=== PATIENT | female | born 1960 | race Hispanic/Latino ===

== ENCOUNTER 2017-04-17 09:18 | Outpatient (CLI) | payer MEDICARE ==
--- NOTE | 2017-04-18 14:43 | Mammography Report ---
BILATERAL DIGITAL SCREENING MAMMOGRAM with CAD: 04/17/17 09:18:00 CLINICAL: Routine screening. COMPARISON:09/10/17 and 06/20/10 FINDINGS: The breasts are mostly fatty. Left asymmetries far posterior and lateral in the left breast on the CC view require additional imaging.No architectural distortion or suspicious calcifications.The right breast is negative. IMPRESSION: Left asymmetries requiring further workup. BI-RADS CATEGORY: 0 -- Additional Imaging Evaluation Required RECOMMENDATION: Recall for left exaggerated CC and spot compression CC views and left breast ultrasound if needed. ACR BI-RADS MAMMOGRAPHIC CODES: 0 = Needs additional imaging evaluation; 1 = Negative; 2 = Benign; 3 = Probably benign; 4 = Suspicious; 5 = Malignant; 6 = Known biopsy-proven malignancy COMMENT: 1. Dense breast tissue, i.e., adenosis, fibrocystic changes, etc., may obscure an underlying neoplasm. 2. Approximately 10% of cancers are not detected with mammography. 3. A negative mammography report should not delay biopsy if a clinically suspicious mass is present. COMMENT: Patient follow-up letters are generated via our [employer] application.
== END 2017-04-17 09:19 | disposition home or self-care (01) ==
LOC: MAMMO 09:18
PROVIDERS: ATTEND Obstetrics & Gynecology
DX: Z12.31 Encounter for screening mammogram for malignant neoplasm of breast (principal)
CPT/HCPCS: 77067

== ENCOUNTER 2017-05-31 08:35 | Outpatient (CLI) | payer MEDICARE ==
--- NOTE | 2017-05-31 09:44 | Ultrasound Report ---
Left mammogram and breast ultrasound: Additional imaging of the left breast is performed for an asymmetry identified on recent screening exam. Spot compression imaging in the CC view again demonstrates this horseshoe shaped density with a lucent at the junction of the pectoralis muscle. This is only identified in the CC projection. Ultrasound of the breast near the axilla also demonstrates a heterogeneously hypoechoic circumscribed area measuring 7.3 mm which is similar in size to the mammographic density. There are no overtly suspicious characteristics. Impression: Probably benign left asymmetry. Recommendation: Repeat left mammogram and ultrasound in 6 months to confirm stability. BI-RADS CATEGORY: 3 = Probably benign ACR BI-RADS MAMMOGRAPHIC CODES: 0 = Needs additional imaging evaluation; 1 = Negative; 2 = Benign; 3 = Probably benign; 4 = Suspicious; 5 = Malignant; 6 = Known biopsy-proven malignancy COMMENT: 1. Dense breast tissue, i.e., adenosis, fibrocystic changes, etc., may obscure an underlying neoplasm. 2. Approximately 10% of cancers are not detected with mammography. 3. A negative mammography report should not delay biopsy if a clinically suspicious mass is present.
== END 2017-05-31 08:36 | disposition home or self-care (01) ==
LOC: MAMMO 08:35
PROVIDERS: ATTEND Obstetrics & Gynecology
DX: R92.8 Other abnormal and inconclusive findings on diagnostic imaging of breast (principal)

== ENCOUNTER 2019-05-11 22:25 | Observation (INO) | payer MEDICARE ==
--- NOTE | 2019-05-11 22:42 | Emergency Department Report ---
ED Shortness of Breath HPI - General Chief Complaint: Dyspnea/Respdistress Stated Complaint: LIZZY Time Seen by Provider: 05/11/19 22:31 Source: EMS Mode of arrival: Stretcher Limitations: Other - History of Present Illness Initial Comments: Mrs. Soria is a 58-year-old female with history of pulmonary hypertension, coronary artery disease status post PCI, end-stage renal disease on hemodialysis Sunday who presents with severe shortness of breath. For the past week she has had cough and sinus congestion. Her PCP prescribed antibioti cs. Last hemodialysis session occurred on Sunday. She missed dialysis on Sunday due to nausea, upset stomach. Shortness of breath began today. Shortness of breath worsened over the last 45 minutes. She is only able to ambulate 2-3 steps before she develops shortness of breath. She normally requires 1 to 3 L nasal cannula supplemental oxygen. Today her daughter increase her oxygen supplementation to 8 L/min. Ms. Soria still produces urine. She has received care previously at [facility]. Oil Field Tester is Dr. Nj. She receives hemodialysis at [facility]. PCP Dr. Darryl Espinal in [place] History obtained from paramedics and daughter at the bedside. unable to obtain history from patient due to severe work of breathing, en route, EMS treated patient with CPAP, albuterol nebulizer therapy, IV Solu-Medrol and IV magnesium. No history of COPD. No history of tobacco abuse. Highest oxygen saturation achieved by EMS 88 to 89% while on CPAP and receiving nebulizer therapy. MD Complaint: shortness of breath -: Gradual, days(s) (1) Severity: severe Consistency: constant Improves With: nothing Worsens With: exertion Known History Of: other (End-stage renal disease on hemodialysis) Context: recent URI - Related Data Home Medications Medication Instructions Recorded Confirmed Last Taken Gabapentin 600 mg PO TID 05/11/19 05/12/19 Unknown Isosorbide Dinitrate [Isordil 20 mg PO TID 05/11/19 05/11/19 Unknown Titradose] Lispro Insulin [HumaLOG] 05/11/19 Unknown Ticagrelor [Brilinta] 90 mg PO BID 05/11/19 05/11/19 Unknown carvediloL [Coreg] 6.25 mg PO BID 05/11/19 05/11/19 Unknown clonazePAM 0.5 mg PO QDAY PRN 05/11/19 05/11/19 Unknown tiZANidine [Zanaflex 4mg TAB] 4 mg PO DAILY 05/11/19 05/11/19 Unknown Benzonatate 100 mg PO PRN PRN 05/12/19 05/12/19 Unknown Cinacalcet [Sensipar] 60 mg PO QDAY 05/12/19 05/12/19 Unknown Velphoro (Nf) 500 mg PO QACHS 05/12/19 05/12/19 Unknown cloNIDine [Catapres] 0.1 mg PO QDAY PRN 05/12/19 05/12/19 Unknown Allergies Allergy/AdvReac Type Severity Reaction Status Date / Time clindamycin Allergy Rash Verified 05/11/19 22:37 codeine Allergy Itching Unverified 09/10/14 08:21 Penicillins Allergy Rash Unverified 09/10/14 08:21 ED Review of Systems ROS: Stated complaint: LIZZY Other details as noted in HPI Comment: Unobtainable due to pts medical conditions (Severe work of breathing) ED Past Medical Hx - Past Medical History Previous Medical History?: Yes Hx Diabetes: Yes Additional medical history: dialysis m.w.f, cardiac stent pulmonary hypertension - Surgical History Past Surgical History?: Yes Additional Surgical History: fistula left arm , stent placed 2018 - Social History Smoking Status: Never Smoker Substance Use Type: None - Medications Home Medications: Home Medications Medication Instructions Recorded Confirmed Last Taken Type Gabapentin 600 mg PO TID 05/11/19 05/12/19 Unknown History Isosorbide Dinitrate [Isordil 20 mg PO TID 05/11/19 05/11/19 Unknown History Titradose] Lispro Insulin [HumaLOG] 05/11/19 Unknown History Ticagrelor [Brilinta] 90 mg PO BID 05/11/19 05/11/19 Unknown History carvediloL [Coreg] 6.25 mg PO BID 05/11/19 05/11/19 Unknown History clonazePAM 0.5 mg PO QDAY PRN 05/11/19 05/11/19 Unknown History tiZANidine [Zanaflex 4mg TAB] 4 mg PO DAILY 05/11/19 05/11/19 Unknown History Benzonatate 100 mg PO PRN PRN 05/12/19 05/12/19 Unknown History Cinacalcet [Sensipar] 60 mg PO QDAY 05/12/19 05/12/19 Unknown History Velphoro (Nf) 500 mg PO QACHS 05/12/19 05/12/19 Unknown History cloNIDine [Catapres] 0.1 mg PO QDAY PRN 05/12/19 05/12/19 Unknown History ED Physical Exam - General Limitations: Other General appearance: alert, in distress, other (Severe work of breathing, accessory muscle use, only able to speak 1-2 word sentences,) - Head Head exam: Present: atraumatic, normocephalic - Eye Eye exam: Present: normal appearance - ENT ENT exam: Present: mucous membranes moist - Neck Neck exam: Present: normal inspection, full ROM - Respiratory Respiratory exam: Present: respiratory distress, rales, rhonchi, accessory muscle use, decreased breath sounds - Cardiovascular Cardiovascular Exam: Present: regular rate, normal rhythm, normal heart sounds, systolic murmur, diastolic murmur. Absent: rubs, gallop - GI/Abdominal GI/Abdominal exam: Present: soft. Absent: distended, tenderness, guarding, rebound - Extremities Exam Extremities exam: Present: normal inspection - Neurological Exam Neurological exam: Present: alert, oriented X3 - Psychiatric Psychiatric exam: Present: anxious - Skin Skin exam: Present: warm, dry, intact, normal color, other (Left upper extremity AV fistula positive thrill positive bruit). Absent: rash ED Course Vital Signs 05/11/19 05/11/19 05/11/19 22:28 22:29 22:30 Pulse Rate 97 H 96 H 98 H Respiratory 15 30 H 18 Rate Blood Pressure Blood Pressure 212/83 [Right] O2 Sat by Pulse 98 95 Oximetry 05/11/19 05/11/19 05/11/19 22:42 22:43 22:46 Pulse Rate 95 H 85 Respiratory 20 23 21 Rate Blood Pressure 212/83 208/91 Blood Pressure [Right] O2 Sat by Pulse 100 98 100 Oximetry 05/11/19 05/11/19 05/11/19 22:55 23:00 23:16 Pulse Rate 67 62 61 Respiratory 20 20 Rate Blood Pressure 207/80 207/80 208/91 Blood Pressure [Right] O2 Sat by Pulse 97 99 Oximetry 05/11/19 05/11/1905/12/20 23:30 23:46 00:00 Pulse Rate 62 60 63 Respiratory 20 19 20 Rate Blood Pressure 170/59 170/59 191/78 Blood Pressure [Right] O2 Sat by Pulse 100 100 100 Oximetry 05/12/19 00:29 Pulse Rate 66 Respiratory Rate Blood Pressure 211/81 Blood Pressure [Right] O2 Sat by Pulse Oximetry ED Medical Decision Making - Lab Data Result diagrams: 05/11/19 23:11 05/11/19 23:11 - EKG Data 05/11/19 22:42 EKG obtained 2236 Normal sinus rhythm rate 95 bpm normal axis prolonged QTC poor R wave progression in anterior leads widened QRS complex no ST elevation - Radiology Data Radiology results: report reviewed AP portable chest x-ray showed significant pulmonary edema with moderate pleural effusions cephalization, alveolar edema - Medical Decision Making Mrs. Soria has history of pulmonary hypertension, coronary disease, diabetes mellitus, end-stage renal disease on hemodialysis. She presents in severe respiratory distress. She has required noninvasive positive pressure ventilation. 1. Acute respiratory failure hypoxia: Severe pulmonary edema seen on chest radiograph, blood pressure controlled with IV labetalol and preload reduction and venodilatation achieved with sublingual nitroglycerin, I have consulted marketing production coordinator Dr. Lacy who agreed to arrange emergent hemodialysis. No indication of concomitant causes of hypoxia respiratory failure such as pulmonary embolism or OR. Patient feels much better with noninvasive positive pressure ventilation. Dr. Starr hospitalist agreed to admit the patient to the CCU. Critical Care Time: Yes Critical care time in (mins) excluding proc time.: 40 Critical care attestation.: If time is entered above; I have spent that time in minutes in the direct care of this critically ill patient, excluding procedure time. 40 minutes of critical care time excluding procedures were used in the care of the patient. I reviewed electronic record. I discussed treatment plan with the nursing team members at the bedside. I came immediately to the bedside. I kept the family member informed. Patient required multiple interventions and reassessments. I obtained history from escort car driver at the bedside. I was concerned for patient's high oxygen requirement. Also concerning for impending airway compromise. ED Disposition Clinical Impression: Acute respiratory failure with hypoxia, Hypertensive emergency, End stage renal disease on dialysis, Pulmonary hypertension Disposition: OP ADMIT IP TO THIS HOSP Is pt being admited?: Yes Does the pt Need Aspirin: No Condition: Fair
[2019-05-11] MEDS ORDERED: NITROGLYCERIN 2% OINT 1 GM TP STA (22:54)
--- NOTE | 2019-05-11 23:04 | XRay Report ---
CHEST 1 VIEW 20-39 INDICATION / CLINICAL INFORMATION: Dyspnea esrd hypoxia. COMPARISON: None available. FINDINGS: SUPPORT DEVICES: None HEART / MEDIASTINUM: Moderate cardiomegaly LUNGS / PLEURA: Poor degree of inspiration is seen. Congestive changes and pulmonary edema are noted. Bibasilar areas of atelectasis and/or infiltrate are seen, particularly which may relate to the dimas estive process and edema. Bilateral [id number] pleural effusions are seen, left greater than r ight. No pneumothorax. ADDITIONAL FINDINGS: No significant additional findings. IMPRESSION: Congestive failure Signer Name: Oracio Dow MD Signed: 05/11/2019 10:59 PM Workstation Name: [id number]
[2019-05-11 23:38] LABS: Basophils # (Auto) 0.1 K/mm3 (0.0-0.1); Basophils % (Auto) 0.6 % (0.0-1.8); Eosinophils # (Auto) 0.1 K/mm3 (0.0-0.4); Eosinophils % (Auto) 1.4 % (0.0-4.3); Hematocrit 32.7 % (30.3-42.9); Hemoglobin 10.5 gm/dl (10.1-14.3); Lymphocytes # (Auto) 0.7 K/mm3 (1.2-5.4); Lymphocytes % (Auto) 7.2 % (13.4-35.0); Mean Corpuscular HGB Conc 32 % (30-34); Mean Corpuscular Volume 99 fl (79-97); Monocytes # (Auto) 0.3 K/mm3 (0.0-0.8); Monocytes % (Auto) 2.8 % (0.0-7.3); Platelet Count 144 K/mm3 (140-440); Red Blood Count 3.29 M/mm3 (3.65-5.03); Red Cell Distribution Width 15.1 % (13.2-15.2)
[2019-05-12 00:25] LABS: Calcium 10.9 mg/dL (8.4-10.2)
[2019-05-12 00:30] LABS: Alanine Aminotransferase 11 units/L (7-56); Albumin 3.9 g/dL (3.9-5)
[2019-05-12 00:34] LABS: Bilirubin,Direct < 0.2 mg/dL (0-0.2)
[2019-05-12 00:55] LABS: ABG Base Excess -1.6 mmol/L (-2.0-3.0); ABG HCO3 24.9 mmol/L (20.0-26.0); ABG Methemoglobin 0.5 % (0.0-1.5); ABG Oxygen Saturation 94.8 % (95.0-99.0); ABG PCO2 50.6 mm Hg; ABG PH 7.31 pH Units (7.350-7.450); ABG PO2 77.1 mm Hg (80.0-90.0)
[2019-05-12] MEDS ORDERED: cloNIDine 0.2 MG TAB PO ONE (01:13)
[2019-05-12] MEDS ORDERED: MORPHINE 2 MG/1 ML INJ IV PRN (02:02)
[2019-05-12] MEDS ORDERED: MAGNESIUM HYDROXIDE (MOM) ORAL LIQD UDC PO PRN (02:02)
[2019-05-12] MEDS ORDERED: DEXTROSE 50% IN WATER (25GM) 50 ML SYRINGE IV PRN (02:02)
[2019-05-12] MEDS ORDERED: ONDANSETRON 4 MG/2 ML INJ IV PRN (02:02)
[2019-05-12] MEDS ORDERED: hydrALAZINE 20 MG/1 ML INJ IV ONE (02:05)
--- NOTE | 2019-05-12 02:14 | History and Physical Report ---
History of Present Illness Date of examination: 05/12/19 Date of admission: 05/12/2019 Chief complaint: Shortness of breath History of present illness: Patient is a 57-year-old female with significant past medical history of coronary artery disease status post stent placement in the past, pulmonary hypertension, end-stage renal disease on dialysis Wednesdays and Fridays presenting to the emergency room today complaining of shortness of breath. Patient has been having cough and sinus congestion for about a week, she was also having some nausea and vomiting sometime on Sunday and therefore could not go for dialysis. She has been having worsening shortness of breath for about an hour prior to reporting to the emergency room. Patient is on oxygen at home and uses up to 1 to 3 L however she was getting progressively short of breath and oxygen had to be titrated upwards by her daughter. Upon arrival in the emergency room she was initially placed on BiPAP and subsequently transitioned to oxygen by nasal cannula. Work-up in the emergency room including chest x-ray reveals pulmonary edema. Patient's teletypewriter operator was consulted by the ER physician and immediate dialysis will be scheduled. Past History Past Medical History: CAD, diabetes, ESRD, hypertension Past Surgical History: Other (A-V fistula placement) Social history: no significant social history Family history: no significant family history Medications and Allergies Allergies Allergy/AdvReac Type Severity Reaction Status Date / Time clindamycin Allergy Rash Verified 05/11/19 22:37 codeine Allergy Itching Unverified 09/10/14 08:21 Penicillins Allergy Rash Unverified 09/10/14 08:21 Home Medications Medication Instructions Recorded Confirmed Last Taken Type Gabapentin 600 mg PO TID 05/11/19 05/12/19 Unknown History Isosorbide Dinitrate [Isordil 20 mg PO TID 05/11/19 05/11/19 Unknown History Titradose] Lispro Insulin [HumaLOG] 05/11/19 Unknown History Ticagrelor [Brilinta] 90 mg PO BID 05/11/19 05/11/19 Unknown History carvediloL [Coreg] 6.25 mg PO BID 05/11/19 05/11/19 Unknown History clonazePAM 0.5 mg PO QDAY PRN 05/11/19 05/11/19 Unknown History tiZANidine [Zanaflex 4mg TAB] 4 mg PO DAILY 05/11/19 05/11/19 Unknown History Benzonatate 100 mg PO PRN PRN 05/12/19 05/12/19 Unknown History Cinacalcet [Sensipar] 60 mg PO QDAY 05/12/19 05/12/19 Unknown History Velphoro (Nf) 500 mg PO QACHS 05/12/19 05/12/19 Unknown History cloNIDine [Catapres] 0.1 mg PO QDAY PRN 05/12/19 05/12/19 Unknown History Review of Systems Constitutional: no fever, no chills Cardiovascular: no chest pain, no palpitations, no syncope Respiratory: cough, shortness of breath Gastrointestinal: no nausea, no vomiting, no diarrhea Musculoskeletal: no neck pain, no low back pain Integumentary: no rash, no pruritis Neurological: no headaches, no change in mentation Exam - Constitutional Vitals: Temp Pulse Resp BP Pulse Ox 70 21 189/64 89 05/12/19 02:00 05/12/19 02:00 05/12/19 02:00 05/12/19 02:00 General appearance: Present: mild distress, well-nourished - EENT Eyes: Present: PERRL, EOM intact ENT: hearing intact, clear oral mucosa, dentition normal - Neck Neck: Present: supple, normal ROM - Respiratory Respiratory effort: normal Respiratory: bilateral: rales - Cardiovascular Rhythm: regular Heart Sounds: Present: S1 & S2, systolic murmur - Extremities Extremities: no ischemia, No edema, Full ROM Peripheral Pulses: within normal limits - Abdominal General gastrointestinal: Present: soft, non-tender, non-distended, normal bowel sounds - Integumentary Integumentary: Present: clear, warm, dry - Musculoskeletal Musculoskeletal: strength equal bilaterally - Psychiatric Psychiatric: appropriate mood/affect, intact judgment & insight, cooperative - Neurologic Neurologic: CNII-XII intact, moves all extremities Results - Labs CBC & Chem 7: 05/11/19 23:11 05/11/19 23:11 Labs: Abnormal lab results 05/11/19 05/11/19 05/11/19 Range/Units 23:11 23:11 23:11 RBC 3.29 L (3.65-5.03) M/mm3 MCV 99 H (79-97) fl Lymph % (Auto) 7.2 L (13.4-35.0) % Lymph # 0.7 L (1.2-5.4) K/mm3 Seg Neutrophils % 88.0 H (40.0-70.0) % Seg Neutrophils # 8.6 H (1.8-7.7) K/mm3 ABG pH (7.350-7.450) pH Units ABG pO2 (80.0-90.0) mm Hg ABG O2 Saturation (95.0-99.0) % ABG Hemoglobin (12.0-16.0) gm/dl Oxyhemoglobin (95.0-99.0) % Potassium 5.2 H (3.6-5.0) mmol/L BUN 72 H (7-17) mg/dL Creatinine 9.5 H (0.7-1.2) mg/dL Glucose 199 H (65-100) mg/dL POC Glucose (70-105) Calcium 10.9 H (8.4-10.2) mg/dL Troponin T 0.074 H (0.00-0.029) ng/mL NT-Pro-B Natriuret Pep (0-900) pg/mL 05/11/19 05/11/19 05/12/19 Range/Units 23:11 23:20 00:35 RBC (3.65-5.03) M/mm3 MCV (79-97) fl Lymph % (Auto) (13.4-35.0) % Lymph # (1.2-5.4) K/mm3 Seg Neutrophils % (40.0-70.0) % Seg Neutrophils # (1.8-7.7) K/mm3 ABG pH 7.310 L (7.350-7.450) pH Units ABG pO2 77.1 L (80.0-90.0) mm Hg ABG O2 Saturation 94.8 L (95.0-99.0) % ABG Hemoglobin 10.3 L (12.0-16.0) gm/dl Oxyhemoglobin 92.7 L (95.0-99.0) % Potassium (3.6-5.0) mmol/L BUN (7-17) mg/dL Creatinine (0.7-1.2) mg/dL Glucose (65-100) mg/dL POC Glucose 180 H (70-105) Calcium (8.4-10.2) mg/dL Troponin T (0.00-0.029) ng/mL NT-Pro-B Natriuret Pep > 3500 H (0-900) pg/mL Assessment and Plan - Patient Problems (1) Acute respiratory failure with hypoxia Current Visit: Yes Status: Acute Plan to address problem: Probably secondary to pulmonary edema. Patient is to be scheduled for immediate dialysis. Patient has been placed on oxygen and will keep O2 saturation greater or equal to 92%. (2) End stage renal disease on dialysis Current Visit: Yes Status: Acute Plan to address problem: Patient scheduled for immediate dialysis. Patient will be followed up by nephrology. (3) Hypertensive emergency Current Visit: Yes Status: Acute Plan to address problem: Blood pressure quite elevated upon arrival in the emergency room. Patient had several rounds of IV labetalol and IV hydralazine in the emergency room. We will resume routine home medications once reconciled and will monitor blood pressure closely (4) Pulmonary hypertension Current Visit: Yes Status: Acute Plan to address problem: Stable. Continue routine home medications. (5) Diabetes mellitus Current Visit: Yes Status: Acute Plan to address problem: We will monitor Accu-Cheks and resume routine home medications. (6) DVT prophylaxis Current Visit: Yes Status: Acute Plan to address problem: We will place patient on subcutaneous heparin. (7) Full code status Current Visit: Yes Status: Acute
[2019-05-12 02:33] LABS: Chol/HDL Ratio 3.5 %
[2019-05-12] MEDS ORDERED: cloNIDine 0.1 MG TAB PO PRN (05:22)
[2019-05-12] MEDS ORDERED: clonazePAM 0.5 MG TAB PO PRN (05:22)
[2019-05-12 05:24] LABS: Hepatitis B Surface Antigen Non-Reactive (Negative); Hepatitis C Virus Antibody Non-Reactive (NonReactive)
[2019-05-12] MEDS ORDERED: BENZONATATE 100 MG CAP PO PRN (06:00)
[2019-05-12] MEDS: HEPARIN 5,000 UNIT/1 ML VIAL SUB-Q SCH ×3 (07:00→21:26)
[2019-05-12] MEDS: GABAPENTIN 300 MG CAP PO SCH ×3 (07:00→21:21)
[2019-05-12] MEDS: INSULIN LISPRO 100 UNIT/ML SUB-Q SCH ×4 (08:00→21:46)
--- NOTE | 2019-05-12 08:07 | Consultation ---
History of Present Illness - Reason for Consult Consult date: 05/12/19 end stage renal disease - History of Present Illness Patient is a 57-year-old female with significant past medical history of end- stage renal disease on dialysis Wednesdays and Fridays last tx was Sunday, she was admitted for worsening SOB, upon arrival in the emergency room she was initially placed on BiPAP and subsequently transitioned to oxygen by nasal cannula, work-up in the emergency room including chest x-ray reveals pulmonary edema, renal consult was requested and STAT dialysis was ordered Past History Past Medical History: CAD, diabetes, ESRD, hypertension Past Surgical History: Other (A-V fistula placement) Social history: no significant social history Family history: no significant family history Medications and Allergies Allergies Allergy/AdvReac Type Severity Reaction Status Date / Time clindamycin Allergy Rash Verified 05/11/19 22:37 codeine Allergy Itching Unverified 09/10/14 08:21 Penicillins Allergy Rash Unverified 09/10/14 08:21 Home Medications Medication Instructions Recorded Confirmed Last Taken Type Gabapentin 600 mg PO TID 05/11/19 05/12/19 Unknown History Isosorbide Dinitrate [Isordil 20 mg PO TID 05/11/19 05/11/19 Unknown History Titradose] Lispro Insulin [HumaLOG] 0 units SQ QDAY 05/11/19 05/12/19 Unknown History Ticagrelor [Brilinta] 90 mg PO BID 05/11/19 05/11/19 Unknown History carvediloL [Coreg] 6.25 mg PO BID 05/11/19 05/11/19 Unknown History clonazePAM 0.5 mg PO QDAY PRN 05/11/19 05/11/19 Unknown History tiZANidine [Zanaflex 4mg TAB] 4 mg PO DAILY 05/11/19 05/11/19 Unknown History Benzonatate 100 mg PO PRN PRN 05/12/19 05/12/19 Unknown History Cinacalcet [Sensipar] 60 mg PO QDAY 05/12/19 05/12/19 Unknown History Velphoro (Nf) 500 mg PO QACHS 05/12/19 05/12/19 Unknown History cloNIDine [Catapres] 0.1 mg PO QDAY PRN 05/12/19 05/12/19 Unknown History Active Meds: Active Medications Benzonatate (Tessalon Perles) 100 mg PO Q8H PRN PRN Reason: Cough Cinacalcet (Sensipar) 60 mg PO QDAY [facility] Clonazepam (Klonopin) 0.5 mg PO QDAY PRN PRN Reason: Anxiety Clonidine HCl (Catapres) 0.1 mg PO QDAY PRN PRN Reason: Blood Pressure Dextrose (D50w (25gm) Syringe) 0 ml IV Q30MIN PRN; Protocol PRN Reason: Hypoglycemia Gabapentin (Gabapentin) 600 mg PO TID [facility] Heparin Sodium (Porcine) (Heparin) 5,000 unit SUB-Q Q8HR [facility] Insulin Human Lispro (Humalog) 0 unit SUB-Q ACHS [facility]; Protocol Isosorbide Dinitrate (Isordil Titradose) 20 mg PO TID [facility] Magnesium Hydroxide (Milk Of Magnesia) 30 ml PO Q4H PRN PRN Reason: Constipation Miscellaneous Medication (Velphoro (Nf)) 500 mg PO QACHS [facility] Morphine Sulfate (Morphine) 2 mg IV Q4H PRN PRN Reason: Pain, Moderate (4-6) Ondansetron HCl (Zofran) 4 mg IV Q8H PRN PRN Reason: Nausea And Vomiting Sodium Chloride (Sodium Chloride Flush Syringe 10 Ml) 10 ml IV BID [facility] Sodium Chloride (Sodium Chloride Flush Syringe 10 Ml) 10 ml IV PRN PRN PRN Reason: LINE FLUSH Ticagrelor (Brilinta) 90 mg PO BID [facility] Tizanidine HCl (Zanaflex) 4 mg PO DAILY [facility] Review of Systems All systems: negative (ASOB) Exam - Vital Signs Vital signs: Vital Signs Pulse Resp 97 H 15 05/11/19 22:28 05/11/19 22:28 - General Appearance General appearance: well-developed, well-nourished EENT: ATNC, PERRL Neck: Present: neck supple Respiratory: Decreased Breath Sounds Heart: regular, S1S2 Gastrointestinal: Present: normoactive bowel sounds. Absent: tenderness, distended Integumentary: no rash, warm and dry Neurologic: no focal deficit, no asterixis Musculoskeletal: Present: other (trace pitting edema in BLE) Psychiatric: cooperative Results - Lab Results 05/11/19 23:11 05/11/19 23:11 Most recent lab results ABG pH 7.310 pH Units (7.350-7.450) L 05/12/19 00:35 ABG pCO2 50.6 mm Hg 05/12/19 00:35 ABG pO2 77.1 mm Hg (80.0-90.0) L 05/12/19 00:35 ABG HCO3 24.9 mmol/L (20.0-26.0) 05/12/19 00:35 ABG O2 Saturation 94.8 % (95.0-99.0) L 05/12/19 00:35 Calcium 10.9 mg/dL (8.4-10.2) H 05/11/19 23:11 Assessment and Plan ESRD on HD hypoxic respiratory failure due to pulm edema HTN DM type II STAT HD ordered will assess dialysis daily likely another HD tomorrow renally dose meds Strict I&O daily weight
[2019-05-12] MEDS: ISOSORBIDE DINITRATE 20 MG TAB PO SCH ×3 (08:39→22:52)
[2019-05-12] MEDS: tiZANidine TAB 4 MG TAB PO SCH (10:00)
[2019-05-12] MEDS: TICAGRELOR 90 MG TAB PO SCH ×2 (10:00→23:10)
[2019-05-12] MEDS: CINACALCET 30 MG TAB PO SCH (10:00)
--- NOTE | 2019-05-12 10:18 | Consultation ---
History of Present Illness Consult date: 05/12/19 Requesting physician: ISAMAR PASTRANA Past History Past Medical History: CAD, diabetes, ESRD, hypertension Past Surgical History: Other (A-V fistula placement) Social history: no significant social history Family history: no significant family history Medications and Allergies Allergies Allergy/AdvReac Type Severity Reaction Status Date / Time clindamycin Allergy Rash Verified 05/11/19 22:37 codeine Allergy Itching Verified 05/12/19 08:36 Penicillins Allergy Rash Verified 05/12/19 08:36 Home Medications Medication Instructions Recorded Confirmed Last Taken Type Gabapentin 600 mg PO TID 05/11/19 05/12/19 Unknown History Isosorbide Dinitrate [Isordil 20 mg PO TID 05/11/19 05/11/19 Unknown History Titradose] Lispro Insulin [HumaLOG] 0 units SQ QDAY 05/11/19 05/12/19 Unknown History Ticagrelor [Brilinta] 90 mg PO BID 05/11/19 05/11/19 Unknown History carvediloL [Coreg] 6.25 mg PO BID 05/11/19 05/11/19 Unknown History clonazePAM 0.5 mg PO QDAY PRN 05/11/19 05/11/19 Unknown History tiZANidine [Zanaflex 4mg TAB] 4 mg PO DAILY 05/11/19 05/11/19 Unknown History Benzonatate 100 mg PO PRN PRN 05/12/19 05/12/19 Unknown History Cinacalcet [Sensipar] 60 mg PO QDAY 05/12/19 05/12/19 Unknown History Velphoro (Nf) 500 mg PO QACHS 05/12/19 05/12/19 Unknown History cloNIDine [Catapres] 0.1 mg PO QDAY PRN 05/12/19 05/12/19 Unknown History Active Meds: Active Medications Benzonatate (Tessalon Perles) 100 mg PO Q8H PRN PRN Reason: Cough Cinacalcet (Sensipar) 60 mg PO QDAY [facility] Last Admin: 05/12/19 10:00 Dose: 60 mg Documented by: Clonazepam (Klonopin) 0.5 mg PO QDAY PRN PRN Reason: Anxiety Clonidine HCl (Catapres) 0.1 mg PO QDAY PRN PRN Reason: Blood Pressure Last Admin: 05/12/19 10:14 Dose: 0.1 mg Documented by: Dextrose (D50w (25gm) Syringe) 0 ml IV Q30MIN PRN; Protocol PRN Reason: Hypoglycemia Gabapentin (Gabapentin) 600 mg PO TID [facility] Last Admin: 05/12/19 07:00 Dose: 600 mg Documented by: Heparin Sodium (Porcine) (Heparin) 5,000 unit SUB-Q Q8HR [facility] Last Admin: 05/12/19 07:00 Dose: 5,000 unit Documented by: Insulin Human Lispro (Humalog) 0 unit SUB-Q ACHS [facility]; Protocol Last Admin: 05/12/19 08:00 Dose: 3 unit Documented by: Isosorbide Dinitrate (Isordil Titradose) 20 mg PO TID [facility] Last Admin: 05/12/19 08:39 Dose: 20 mg Documented by: Magnesium Hydroxide (Milk Of Magnesia) 30 ml PO Q4H PRN PRN Reason: Constipation Miscellaneous Medication (Velphoro (Nf)) 500 mg PO QAS [facility] Morphine Sulfate (Morphine) 2 mg IV Q4H PRN PRN Reason: Pain, Moderate (4-6) Ondansetron HCl (Zofran) 4 mg IV Q8H PRN PRN Reason: Nausea And Vomiting Sodium Chloride (Sodium Chloride Flush Syringe 10 Ml) 10 ml IV BID [facility] Last Admin: 05/12/19 10:08 Dose: 10 ml Documented by: Sodium Chloride (Sodium Chloride Flush Syringe 10 Ml) 10 ml IV PRN PRN PRN Reason: LINE FLUSH Ticagrelor (Brilinta) 90 mg PO BID [facility] Last Admin: 05/12/19 10:00 Dose: 90 mg Documented by: Tizanidine HCl (Zanaflex) 4 mg PO DAILY [facility] Last Admin: 05/12/19 10:00 Dose: 4 mg Documented by: Physical Examination Vital signs: Vital Signs Pulse Resp 97 H 15 05/11/19 22:28 05/11/19 22:28 Results - Laboratory Findings CBC and BMP: 05/11/19 23:11 05/11/19 23:11 ABG ABG pH 7.310 pH Units (7.350-7.450) L 05/12/19 00:35 ABG pCO2 50.6 mm Hg 05/12/19 00:35 ABG pO2 77.1 mm Hg (80.0-90.0) L 05/12/19 00:35 ABG O2 Saturation 94.8 % (95.0-99.0) L 05/12/19 00:35 Abnormal lab findings: Abnormal Labs 05/11/19 05/11/19 05/11/19 23:11 23:11 23:11 RBC 3.29 L MCV 99 H Lymph % (Auto) 7.2 L Lymph # 0.7 L Seg Neutrophils % 88.0 H Seg Neutrophils # 8.6 H ABG pH ABG pO2 ABG O2 Saturation ABG Hemoglobin Oxyhemoglobin Potassium 5.2 H BUN 72 H Creatinine 9.5 H Glucose 199 H POC Glucose Calcium 10.9 H Troponin T 0.074 H NT-Pro-B Natriuret Pep 05/11/19 05/11/19 05/12/19 23:11 23:20 00:35 RBC MCV Lymph % (Auto) Lymph # Seg Neutrophils % Seg Neutrophils # ABG pH 7.310 L ABG pO2 77.1 L ABG O2 Saturation 94.8 L ABG Hemoglobin 10.3 L Oxyhemoglobin 92.7 L Potassium BUN Creatinine Glucose POC Glucose 180 H Calcium Troponin T NT-Pro-B Natriuret Pep > 3500 H 05/12/19 08:05 RBC MCV Lymph % (Auto) Lymph # Seg Neutrophils % Seg Neutrophils # ABG pH ABG pO2 ABG O2 Saturation ABG Hemoglobin Oxyhemoglobin Potassium BUN Creatinine Glucose POC Glucose 218 H Calcium Troponin T NT-Pro-B Natriuret Pep
[2019-05-12] MEDS: carvediloL 6.25 MG TAB PO SCH ×2 (12:00→22:52)
--- NOTE | 2019-05-12 17:29 | Event Note ---
Date: 05/12/19 Patient seen and examined, resting comfortable. For dialysis today and tomorrow. BP still elevated but improving with resumption of home MEDS anticipate discharge in am. Will transfer to [facility] later today
[2019-05-12] MEDS: VELPHORO 500 MG PO SCH ×2 (18:00→21:22)
[2019-05-12] MEDS ORDERED: SODIUM CHLORIDE*PRIMING MACHINE ONLY FOR DIALYSIS MC ONE (19:30)
[2019-05-13] MEDS: HEPARIN 5,000 UNIT/1 ML VIAL SUB-Q SCH (05:33)
[2019-05-13 05:55] LABS: INR 1.2 (0.87-1.13)
[2019-05-13 05:56] LABS: Partial Thromboplastin Time 30.1 Sec. (24.2-36.6)
[2019-05-13 06:01] LABS: Basophils # (Auto) 0.1 K/mm3 (0.0-0.1); Basophils % (Auto) 0.8 % (0.0-1.8); Eosinophils # (Auto) 0.1 K/mm3 (0.0-0.4); Eosinophils % (Auto) 0.8 % (0.0-4.3); Hematocrit 29.3 % (30.3-42.9); Hemoglobin 9.5 gm/dl (10.1-14.3); Lymphocytes # (Auto) 1.5 K/mm3 (1.2-5.4); Lymphocytes % (Auto) 24.4 % (13.4-35.0); Mean Corpuscular HGB Conc 33 % (30-34); Mean Corpuscular Volume 98 fl (79-97); Monocytes # (Auto) 0.4 K/mm3 (0.0-0.8); Monocytes % (Auto) 5.6 % (0.0-7.3); Platelet Count 150 K/mm3 (140-440); Red Blood Count 2.98 M/mm3 (3.65-5.03); Red Cell Distribution Width 14.9 % (13.2-15.2)
[2019-05-13 06:05] LABS: Calcium 10.2 mg/dL (8.4-10.2)
[2019-05-13] MEDS: VELPHORO 500 MG PO SCH (07:30)
[2019-05-13] MEDS: INSULIN LISPRO 100 UNIT/ML SUB-Q SCH (07:30)
[2019-05-13] MEDS: GABAPENTIN 300 MG CAP PO SCH (08:00)
--- NOTE | 2019-05-13 08:39 | Progress Note ---
Hospitalist Physical - Constitutional Vitals: Temp Pulse Resp BP Pulse Ox 97.6 F 59 L 16 157/77 97 05/13/19 05:29 05/13/19 05:29 05/13/19 05:29 05/13/19 05:29 05/13/19 08:23 General appearance: Present: mild distress, well-nourished Results - Labs CBC & Chem 7: 05/13/19 05:00 05/13/19 05:00 Labs: Laboratory Last Values WBC 6.2 K/mm3 (4.5-11.0) 05/13/19 05:00 RBC 2.98 M/mm3 (3.65-5.03) L 05/13/19 05:00 Hgb 9.5 gm/dl (10.1-14.3) L 05/13/19 05:00 Hct 29.3 % (30.3-42.9) L 05/13/19 05:00 MCV 98 fl (79-97) H 05/13/19 05:00 MCH 32 pg (28-32) 05/13/19 05:00 MCHC 33 % (30-34) 05/13/19 05:00 RDW 14.9 % (13.2-15.2) 05/13/19 05:00 Plt Count 150 K/mm3 (140-440) 05/13/19 05:00 Lymph % (Auto) 24.4 % (13.4-35.0) 05/13/19 05:00 Floyd % (Auto) 5.6 % (0.0-7.3) 05/13/19 05:00 Eos % (Auto) 0.8 % (0.0-4.3) 05/13/19 05:00 Baso % (Auto) 0.8 % (0.0-1.8) 05/13/19 05:00 Lymph # 1.5 K/mm3 (1.2-5.4) 05/13/19 05:00 Floyd # 0.4 K/mm3 (0.0-0.8) 05/13/19 05:00 Eos # 0.1 K/mm3 (0.0-0.4) 05/13/19 05:00 Baso # 0.1 K/mm3 (0.0-0.1) 05/13/19 05:00 Seg Neutrophils % 68.4 % (40.0-70.0) 05/13/19 05:00 Seg Neutrophils # 4.3 K/mm3 (1.8-7.7) 05/13/19 05:00 PT 15.4 Sec. (12.2-14.9) H 05/13/19 05:00 INR 1.20 (0.87-1.13) H 05/13/19 05:00 APTT 30.1 Sec. (24.2-36.6) 05/13/19 05:00 ABG pH 7.310 pH Units (7.350-7.450) L 05/12/19 00:35 ABG pCO2 50.6 mm Hg 05/12/19 00:35 ABG pO2 77.1 mm Hg (80.0-90.0) L 05/12/19 00:35 ABG HCO3 24.9 mmol/L (20.0-26.0) 05/12/19 00:35 ABG O2 Saturation 94.8 % (95.0-99.0) L 05/12/19 00:35 ABG O2 Content 13.5 (0.0-44) 05/12/19 00:35 ABG Base Excess -1.6 mmol/L (-2.0-3.0) 05/12/19 00:35 ABG Hemoglobin 10.3 gm/dl (12.0-16.0) L 05/12/19 00:35 ABG Carboxyhemoglobin 1.8 % (0.0-5.0) 05/12/19 00:35 ABG Methemoglobin 0.5 % (0.0-1.5) 05/12/19 00:35 Oxyhemoglobin 92.7 % (95.0-99.0) L 05/12/19 00:35 FiO2 60 % 05/12/19 00:35 Sodium 140 mmol/L (137-145) 05/13/19 05:00 Potassium 4.8 mmol/L (3.6-5.0) 05/13/19 05:00 Chloride 98.2 mmol/L (98-107) 05/13/19 05:00 Carbon Dioxide 25 mmol/L (22-30) 05/13/19 05:00 Anion Gap 22 mmol/L 05/13/19 05:00 BUN 58 mg/dL (7-17) H 05/13/19 05:00 Creatinine 7.0 mg/dL (0.7-1.2) H 05/13/19 05:00 Estimated GFR 6 ml/min 05/13/19 05:00 BUN/Creatinine Ratio 8 % 05/13/19 05:00 Glucose 219 mg/dL (65-100) H 05/13/19 05:00 POC Glucose 232 (70-105) H 05/13/19 08:16 Calcium 10.2 mg/dL (8.4-10.2) 05/13/19 05:00 Total Bilirubin 0.40 mg/dL (0.1-1.2) 05/11/19 23:11 Direct Bilirubin < 0.2 mg/dL (0-0.2) 05/11/19 23:11 Indirect Bilirubin 0.2 mg/dL 05/11/19 23:11 AST 15 units/L (5-40) 05/11/19 23:11 ALT 11 units/L (7-56) 05/11/19 23:11 Alkaline Phosphatase 94 units/L (35-129) 05/11/19 23:11 Troponin T 0.074 ng/mL (0.00-0.029) H 05/11/19 23:11 NT-Pro-B Natriuret Pep > 3500 pg/mL (0-900) H 05/11/19 23:11 Total Protein 6.7 g/dL (6.3-8.2) 05/11/19 23:11 Albumin 3.9 g/dL (3.9-5) 05/11/19 23:11 Albumin/Globulin Ratio 1.4 % 05/11/19 23:11 Triglycerides 124 mg/dL (2-149) 05/11/19 23:11 Cholesterol 140 mg/dL (50-199) 05/11/19 23:11 LDL Cholesterol Direct 81 mg/dL (50-130) 05/11/19 23:11 HDL Cholesterol 40 mg/dL (40-59) 05/11/19 23:11 Cholesterol/HDL Ratio 3.50 % 05/11/19 23:11 Hepatitis A IgM Ab Non-reactive (NonReactive) 05/12/19 Unknown Hep Bs Antigen Non-reactive (Negative) 05/12/19 Unknown Hep B Core IgM Ab Non-reactive (NonReactive) 05/12/19 Unknown Hepatitis C Antibody Non-reactive (NonReactive) 05/12/19 Unknown Active Medications - Current Medications Current Medications: Generic Name Dose Route Start Last Admin Trade Name Freq PRN Reason Stop Dose Admin Benzonatate 100 mg 05/12/19 06:00 Tessalon Perles PO Q8H PRN Cough Carvedilol 6.25 mg 05/12/19 12:00 05/12/19 22:52 Coreg PO 6.25 mg BID [facility] Administration Cinacalcet 60 mg 05/12/19 10:00 05/12/19 10:00 Sensipar PO 60 mg QDAY [facility] Administration Clonazepam 0.5 mg 05/12/19 05:22 Klonopin PO QDAY PRN Anxiety Clonidine HCl 0.1 mg 05/12/19 05:22 05/12/19 10:14 Catapres PO 0.1 mg QDAY PRN Administration Blood Pressure Dextrose 0 ml 05/12/19 02:02 D50w (25gm) Syringe IV Q30MIN PRN Hypoglycemia Protocol Gabapentin 600 mg 05/12/19 06:00 05/12/19 21:21 Gabapentin PO 600 mg TID [facility] Administration Heparin Sodium (Porcine) 5,000 unit 05/12/19 06:00 05/13/19 05:33 Heparin SUB-Q 5,000 unit Q8HR [facility] Administration Insulin Human Lispro 0 unit 05/12/19 07:30 05/12/19 21:46 Humalog SUB-Q 4 unit ACHS [facility] Administration Protocol Isosorbide Dinitrate 20 mg 05/12/19 08:00 05/12/19 22:52 Isordil Titradose PO 20 mg TID [facility] Administration Magnesium Hydroxide 30 ml 05/12/19 02:02 Milk Of Magnesia PO Q4H PRN Constipation Miscellaneous Medication 500 mg 05/12/19 18:00 05/12/19 21:22 Velphoro (Nf) PO 500 mg QACHS [facility] Administration Morphine Sulfate 2 mg 05/12/19 02:02 Morphine IV Q4H PRN Pain, Moderate (4-6) Ondansetron HCl 4 mg 05/12/19 02:02 Zofran IV Q8H PRN Nausea And Vomiting Sodium Chloride 10 ml 05/12/19 10:00 05/12/19 21:21 Sodium Chloride Flush Syringe 10 Ml IV 10 ml BID [facility] Administration Sodium Chloride 10 ml 05/12/19 02:02 Sodium Chloride Flush Syringe 10 Ml IV PRN PRN LINE FLUSH Ticagrelor 90 mg 05/12/19 10:00 05/12/19 23:10 Brilinta PO 90 mg BID [facility] Administration Tizanidine HCl 4 mg 05/12/19 10:00 05/12/19 10:00 Zanaflex PO 4 mg DAILY [facility] Administration Nutrition/Malnutrition Assess - Dietary Evaluation Nutrition/Malnutrition Findings: Nutrition Notes Start: 05/12/19 12:06 Freq: Status: Active Protocol: Document 05/12/19 12:06 LM (Rec: 05/12/19 12:10 LM [id number]) Nutrition Notes Need for Assessment generated from: MD Order,Education Initial or Follow up Brief Note Current Diagnosis CKD (stage V CKD),Coronary Artery Disease,Diabetes, Hypertension Other Pertinent Diagnosis hypertensive emergency Current Diet Cardiac/consistent CHO Labs/Tests POC glu 218 Pertinent Medications Humalog Height 5 ft 1 in Weight 72.575 kg Snyder Body Weight (kg) 47.72 BMI 30.2 Weight Status Obese Subjective/Other Information MD consult for HTN/DM diet education. Pt asleep at time of visit. Nutrition Intervention Follow-Up By: 05/13/19 Additional Comments F/U for DM/HTN diet ed/ assessment
[2019-05-13] MEDS: tiZANidine TAB 4 MG TAB PO SCH (09:12)
[2019-05-13] MEDS: CINACALCET 30 MG TAB PO SCH (09:13)
[2019-05-13] MEDS: carvediloL 6.25 MG TAB PO SCH (09:13)
[2019-05-13] MEDS ORDERED: SODIUM CHLORIDE*PRIMING MACHINE ONLY FOR DIALYSIS MC ONE (12:08)
--- NOTE | 2019-05-13 12:38 | Discharge Summary ---
Providers - Providers Date of Admission: 05/12/19 02:26 Date of discharge: 05/13/19 Attending physician: SHREE ATKINS 05/12/19 01:06 Consult to Physician [CONS] Stat Comment: Dr. Guevara spoke with Dr. Lacy @ [phone] Consulting Provider: RONALD LACY Physician Instructions: Reason For Exam: pulmonary edema respiratory failure ESRD 05/12/19 01:07 Consult to Physician [CONS] Stat Comment: Consulting Provider: MANASA IRVING Physician Instructions: Reason For Exam: critical care 05/12/19 02:03 Consult to Dietitian/Nutrition [CONS] Routine Physician Instructions: Reason For Exam: Reason for Consult: Diet education Primary care physician: ANA GHOHS Hospitalization Condition: Fair Disposition: DC-01 TO HOME OR SELFCARE Time spent for discharge: 32 min Core Measure Documentation - Palliative Care Palliative Care/ Comfort Measures: Not Applicable - Core Measures Any of the following diagnoses?: none Exam - Constitutional Vitals: Temp Pulse Resp BP Pulse Ox 98.0 F 62 18 162/75 97 05/13/19 10:05 05/13/19 10:05 05/13/19 10:05 05/13/19 10:05 05/13/19 08:23 General appearance: Present: no acute distress, well-nourished - EENT Eyes: Present: PERRL, EOM intact - Neck Neck: Present: supple, normal ROM - Respiratory Respiratory effort: normal Respiratory: bilateral: diminished, rales, negative: rhonchi, wheezing - Cardiovascular Rhythm: regular Heart Sounds: Present: S1 & S2 - Extremities Extremities: no ischemia, No edema - Abdominal General gastrointestinal: Present: soft, non-tender, non-distended, normal bowel sounds - Integumentary Integumentary: Present: clear, warm - Musculoskeletal Musculoskeletal: strength equal bilaterally - Psychiatric Psychiatric: appropriate mood/affect, cooperative - Neurologic Neurologic: moves all extremities Plan Activity: advance as tolerated Diet: renal Additional Instructions: Follow renal/hemodialysis per schedule Follow up with: ANA GHOSH MD [Primary Care Provider] - 7 Days RONALD LACY MD [Staff Physician] - 7 Days
--- NOTE | 2019-05-13 12:45 | Progress Note ---
Assessment and Plan Pt is alert and awake. No acute respiratory distress. Pt is receiving dialysis. She is resting on supplemental O2 2 liters via nasal cannula with an O2 saturation of 97%. She denies any shortness of breath, chest pain, or cough. She is afebrile and has no leukocytosis. CXR from 05/11/19 reported Poor degree of inspiration is seen. Congestive changes and pulmonary edema are noted. Bibasilar areas of atelectasis and/or infiltrate are seen, particularly which may relate to the congestive process and edema. Bilateral [id number] pleural effusions are seen, left greater than right. No pneumothorax. Congestive Failure. Pt has a PMHx of pulmonary hypertension and heart valve replacement. She is allergic to codeine, penicillin, and clindamycin. She wears continuous supplemental O2 at home. She denies any smoking history, alcohol use, or drug use. 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 ABGs on FiO2 60% ABG pH 7.310 pH Units (7.350-7.450) L 05/12/19 00:35 ABG pCO2 50.6 mm Hg 05/12/19 00:35 ABG pO2 77.1 mm Hg (80.0-90.0) L 05/12/19 00:35 ABG O2 Saturation 94.8 % (95.0-99.0) L 05/12/19 00:35 - Patient Problems (1) Acute respiratory failure with hypoxia Current Visit: Yes Status: Acute Plan to address problem: -Continuous supplemental O2 at 2 liters via nasal cannula -Continue SQ heparin -Recommend follow-up with her Mapping Engineer at [facility] (2) DVT prophylaxis Current Visit: Yes Status: Acute Plan to address problem: -Continue SQ heparin (3) Diabetes mellitus Current Visit: Yes Status: Acute Plan to address problem: Management as per primary care (4) End stage renal disease on dialysis Current Visit: Yes Status: Acute Plan to address problem: Management as per nephrology (5) Hypertensive emergency Current Visit: Yes Status: Acute Plan to address problem: Management as per primary care (6) Pulmonary hypertension Current Visit: Yes Status: Acute Plan to address problem: -Continue supplemental O2 2 liters via nasal cannula -Continue SQ heparin -Recommend follow-up with her manager distribution at [facility] Subjective Date of service: 05/13/19 Interval history: Pt is alert and awake. No acute respiratory distress. Pt is receiving dialysis. She is resting on supplemental O2 2 liters via nasal cannula with an O2 saturation of 97%. She denies any shortness of breath, chest pain, or cough. She is afebrile and has no leukocytosis. CXR from 05/11/19 reported Poor degree of inspiration is seen. Congestive changes and pulmonary edema are noted. Bibasilar areas of atelectasis and/or infiltrate are seen, particularly which may relate to the congestive process and edema. Bilateral [id number] pleural effusions are seen, left greater than right. No pneumothorax. Congestive Failure. Pt has a PMHx of pulmonary hypertension and heart valve replacement. She is allergic to codeine, penicillin, and clindamycin. She wears continuous supplemental O2 at home. She denies any smoking history, alcohol use, or drug use. 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 ABGs on FiO2 60% ABG pH 7.310 pH Units (7.350-7.450) L 05/12/19 00:35 ABG pCO2 50.6 mm Hg 05/12/19 00:35 ABG pO2 77.1 mm Hg (80.0-90.0) L 05/12/19 00:35 ABG O2 Saturation 94.8 % (95.0-99.0) L 05/12/19 00:35 Objective Vital Signs - 12hr 05/13/19 05/13/19 05/13/19 05:29 08:23 10:05 Temperature 97.6 F 98.0 F Pulse Rate 59 L 62 Respiratory 16 18 Rate Blood Pressure 157/77 162/75 O2 Sat by Pulse 97 97 Oximetry 05/13/19 05/13/19 05/13/19 10:15 10:30 10:45 Temperature Pulse Rate 56 L 54 L 53 L Respiratory Rate Blood Pressure 180/69 150/61 145/63 O2 Sat by Pulse Oximetry 05/13/19 05/13/19 05/13/19 11:00 11:15 11:30 Temperature Pulse Rate 57 L 54 L 54 L Respiratory Rate Blood Pressure 133/52 152/67 128/51 O2 Sat by Pulse Oximetry 05/13/19 05/13/19 05/13/19 11:45 12:00 12:15 Temperature Pulse Rate 52 L 52 L 52 L Respiratory Rate Blood Pressure 142/61 140/59 142/59 O2 Sat by Pulse Oximetry 05/13/19 12:30 Temperature Pulse Rate 54 L Respiratory Rate Blood Pressure 118/54 O2 Sat by Pulse Oximetry Constitutional: no acute distress, alert Eyes: non-icteric ENT: oropharynx moist Neck: supple, no lymphadenopathy, no JVD Effort: normal Ascultation: Bilateral: other (prolonged expiratory phase) Cardiovascular: regular rate and rhythm Gastrointestinal: normoactive bowel sounds, soft, non-distended Integumentary: normal Extremities: no cyanosis, no edema Neurologic: normal mental status, non-focal exam Psychiatric: mood appropriate, affect normal CBC and BMP: 05/13/19 05:00 05/13/19 05:00 ABG, PT/INR, D-dimer: ABG ABG pH 7.310 pH Units (7.350-7.450) L 05/12/19 00:35 ABG pCO2 50.6 mm Hg 05/12/19 00:35 ABG pO2 77.1 mm Hg (80.0-90.0) L 05/12/19 00:35 ABG O2 Saturation 94.8 % (95.0-99.0) L 05/12/19 00:35 PT/INR, D-dimer PT 15.4 Sec. (12.2-14.9) H 05/13/19 05:00 INR 1.20 (0.87-1.13) H 05/13/19 05:00 Abnormal lab findings: Abnormal Labs 05/11/19 05/11/19 05/11/19 23:11 23:11 23:11 RBC 3.29 L Hgb Hct MCV 99 H Lymph % (Auto) 7.2 L Lymph # 0.7 L Seg Neutrophils % 88.0 H Seg Neutrophils # 8.6 H PT INR ABG pH ABG pO2 ABG O2 Saturation ABG Hemoglobin Oxyhemoglobin Potassium 5.2 H BUN 72 H Creatinine 9.5 H Glucose 199 H POC Glucose Calcium 10.9 H Troponin T 0.074 H NT-Pro-B Natriuret Pep 05/11/19 05/11/19 05/12/19 23:11 23:20 00:35 RBC Hgb Hct MCV Lymph % (Auto) Lymph # Seg Neutrophils % Seg Neutrophils # PT INR ABG pH 7.310 L ABG pO2 77.1 L ABG O2 Saturation 94.8 L ABG Hemoglobin 10.3 L Oxyhemoglobin 92.7 L Potassium BUN Creatinine Glucose POC Glucose 180 H Calcium Troponin T NT-Pro-B Natriuret Pep > 3500 H 05/12/19 05/12/19 05/12/19 08:05 12:28 16:21 RBC Hgb Hct MCV Lymph % (Auto) Lymph # Seg Neutrophils % Seg Neutrophils # PT INR ABG pH ABG pO2 ABG O2 Saturation ABG Hemoglobin Oxyhemoglobin Potassium BUN Creatinine Glucose POC Glucose 218 H 265 H 300 H Calcium Troponin T NT-Pro-B Natriuret Pep 05/12/19 05/13/19 05/13/19 21:38 05:00 05:00 RBC 2.98 L Hgb 9.5 L Hct 29.3 L MCV 98 H Lymph % (Auto) Lymph # Seg Neutrophils % Seg Neutrophils # PT 15.4 H INR 1.20 H ABG pH ABG pO2 ABG O2 Saturation ABG Hemoglobin Oxyhemoglobin Potassium BUN Creatinine Glucose POC Glucose 228 H Calcium Troponin T NT-Pro-B Natriuret Pep 05/13/19 05/13/19 05:00 08:16 RBC Hgb Hct MCV Lymph % (Auto) Lymph # Seg Neutrophils % Seg Neutrophils # PT INR ABG pH ABG pO2 ABG O2 Saturation ABG Hemoglobin Oxyhemoglobin Potassium BUN 58 H Creatinine 7.0 H Glucose 219 H POC Glucose 232 H Calcium Troponin T NT-Pro-B Natriuret Pep Chest x-ray: report reviewed, image reviewed Additional Studies: CXR from 05/11/19 reported Poor degree of inspiration is seen. Congestive changes and pulmonary edema are noted. Bibasilar areas of atelectasis and/or infiltrate are seen, particularly which may relate to the congestive process and edema. Bilateral [id number] pleural effusions are seen, left greater than right. No pneumothorax. Congestive Failure
--- NOTE | 2019-05-13 13:33 | Progress Note ---
Assessment and Plan ESRD on HD hypoxic respiratory failure due to pulm edema HTN DM type II DH today for clearance and volume remova can be discharged [place] [facility] [place] [facility] renally dose meds Strict I&O daily weight Subjective Date of service: 05/13/19 Principal diagnosis: ESRD Interval history: was in dialysis this AM Objective - Vital Signs Vital signs: Vital Signs - 12hr 05/13/19 05/13/19 05/13/19 05:29 08:23 10:05 Temperature 97.6 F 98.0 F Pulse Rate 59 L 62 Respiratory 16 18 Rate Blood Pressure 157/77 162/75 O2 Sat by Pulse 97 97 Oximetry 05/13/19 05/13/19 05/13/19 10:15 10:30 10:45 Temperature Pulse Rate 56 L 54 L 53 L Respiratory Rate Blood Pressure 180/69 150/61 145/63 O2 Sat by Pulse Oximetry 05/13/19 05/13/19 05/13/19 11:00 11:15 11:30 Temperature Pulse Rate 57 L 54 L 54 L Respiratory Rate Blood Pressure 133/52 152/67 128/51 O2 Sat by Pulse Oximetry 05/13/19 05/13/19 05/13/19 11:45 12:00 12:15 Temperature Pulse Rate 52 L 52 L 52 L Respiratory Rate Blood Pressure 142/61 140/59 142/59 O2 Sat by Pulse Oximetry 05/13/19 05/13/19 12:30 12:45 Temperature Pulse Rate 54 L 55 L Respiratory Rate Blood Pressure 118/54 129/58 O2 Sat by Pulse Oximetry - Lab 05/13/19 05:00 05/13/19 05:00 Most recent lab results ABG pH 7.310 pH Units (7.350-7.450) L 05/12/19 00:35 ABG pCO2 50.6 mm Hg 05/12/19 00:35 ABG pO2 77.1 mm Hg (80.0-90.0) L 05/12/19 00:35 ABG HCO3 24.9 mmol/L (20.0-26.0) 05/12/19 00:35 ABG O2 Saturation 94.8 % (95.0-99.0) L 05/12/19 00:35 Calcium 10.2 mg/dL (8.4-10.2) 05/13/19 05:00 Medications & Allergies - Medications Allergies/Adverse Reactions: Allergies clindamycin Allergy (Verified 05/11/19 22:37) Rash codeine Allergy (Verified 05/12/19 08:36) Itching Penicillins Allergy (Verified 05/12/19 08:36) Rash Home Medications: Home Medications Medication Instructions Recorded Confirmed Last Taken Type Gabapentin 600 mg PO TID 05/11/19 05/12/19 Unknown History Isosorbide Dinitrate [Isordil 20 mg PO TID 05/11/19 05/11/19 Unknown History Titradose] Lispro Insulin [HumaLOG] 0 units SQ QDAY 05/11/19 05/12/19 Unknown History Ticagrelor [Brilinta] 90 mg PO BID 05/11/19 05/11/19 Unknown History carvediloL [Coreg] 6.25 mg PO BID 05/11/19 05/11/19 Unknown History clonazePAM 0.5 mg PO QDAY PRN 05/11/19 05/11/19 Unknown History tiZANidine [Zanaflex 4mg TAB] 4 mg PO DAILY 05/11/19 05/11/19 Unknown History Benzonatate 100 mg PO PRN PRN 05/12/19 05/12/19 Unknown History Cinacalcet [Sensipar] 60 mg PO QDAY 05/12/19 05/12/19 Unknown History Velphoro (Nf) 500 mg PO QACHS 05/12/19 05/12/19 Unknown History cloNIDine [Catapres] 0.1 mg PO QDAY PRN 05/12/19 05/12/19 Unknown History Active Medications: Generic Name Dose Route Start Last Admin Trade Name Freq PRN Reason Stop Dose Admin Benzonatate 100 mg 05/12/19 06:00 Tessalon Perles PO Q8H PRN Cough Carvedilol 6.25 mg 05/12/19 12:00 05/13/19 09:13 Coreg PO 6.25 mg BID MINA Administration Cinacalcet 60 mg 05/12/19 10:00 05/13/19 09:13 Sensipar PO 60 mg QDAY MINA Administration Clonazepam 0.5 mg 05/12/19 05:22 Klonopin PO QDAY PRN Anxiety Clonidine HCl 0.1 mg 05/12/19 05:22 05/12/19 10:14 Catapres PO 0.1 mg QDAY PRN Administration Blood Pressure Dextrose 0 ml 05/12/19 02:02 D50w (25gm) Syringe IV Q30MIN PRN Hypoglycemia Protocol Gabapentin 600 mg 05/12/19 06:00 05/13/19 08:00 Gabapentin PO 600 mg TID MINA Administration Heparin Sodium (Porcine) 5,000 unit 05/12/19 06:00 05/13/19 05:33 Heparin SUB-Q 5,000 unit Q8HR MINA Administration Insulin Human Lispro 0 unit 05/12/19 07:30 05/13/19 07:30 Humalog SUB-Q 4 unit ACHS MINA Administration Protocol Isosorbide Dinitrate 20 mg 05/12/19 08:00 05/12/19 22:52 Isordil Titradose PO 20 mg TID MINA Administration Magnesium Hydroxide 30 ml 05/12/19 02:02 Milk Of Magnesia PO Q4H PRN Constipation Miscellaneous Medication 500 mg 05/12/19 18:00 05/13/19 07:30 Velphoro (Nf) PO 500 mg QACHS MINA Administration Morphine Sulfate 2 mg 05/12/19 02:02 Morphine IV Q4H PRN Pain, Moderate (4-6) Ondansetron HCl 4 mg 05/12/19 02:02 Zofran IV Q8H PRN Nausea And Vomiting Sodium Chloride 10 ml 05/12/19 10:00 05/13/19 09:14 Sodium Chloride Flush Syringe 10 Ml IV 10 ml BID MINA Administration Sodium Chloride 10 ml 05/12/19 02:02 Sodium Chloride Flush Syringe 10 Ml IV PRN PRN LINE FLUSH Ticagrelor 90 mg 05/12/19 10:00 05/12/19 23:10 Brilinta PO 90 mg BID MINA Administration Tizanidine HCl 4 mg 05/12/19 10:00 05/13/19 09:12 Zanaflex PO 4 mg DAILY MINA Administration
[2019-05-13 16:14] VITALS: BP 130/58
== END 2019-05-13 18:23 | disposition home or self-care (01) ==
LOC: ED 22:25 → INTOOBSV 05-12 02:26 → CC1 05-12 02:26 → 3A 05-12 19:00
PROVIDERS: ADMIT Internal Medicine Geriatric Medicine; ATTEND Internal Medicine
DX: J96.01 Acute respiratory failure with hypoxia (principal); I16.0 Hypertensive urgency; I12.0 Hypertensive chronic kidney disease with stage 5 chronic kidney disease or end stage renal disease; N18.6 End stage renal disease; I27.20 Pulmonary hypertension, unspecified; E11.22 Type 2 diabetes mellitus with diabetic chronic kidney disease; I25.10 Atherosclerotic heart disease of native coronary artery without angina pectoris
CPT/HCPCS: 36415; 71045; 80048; 80061; 80074; 80076; 82803; 82962; 83880; 84484; 85025; 85610; 85730; 87040; 93005; 93010; 94760; 96372; 96374; 99291; G0378; J0360; J1644; J7030; J1815